=== PATIENT | female | born 1970 | race Caucasian/White ===

== ENCOUNTER 2016-04-23 10:00 | Emergency (ER) | payer OTHER ==
[~2016-04-23] VITALS: Ht 157.5 cm; Wt 135.2 kg
[2016-04-23 10:11] VITALS: BP 128/89; PULSE 99; RESP 17; TEMP 96.8; O2SAT 100
[2016-04-23] MEDS ORDERED: LIDOCAINE/PRILOCAINE 5 GM CREAM (EMLA) TP ONE (10:45)
[2016-04-23] MEDS ORDERED: ACETAMINOPHEN 500 MG TABLET PO ONE (10:45)
[2016-04-23] MEDS ORDERED: ceFAZolin SODIUM 1 GM VIAL IM ONE (10:45)
[2016-04-23] MEDS ORDERED: SULFAMETHOXAZOLE/TRIMETHOPR DS 1 TABLET PO ONE (10:45)
[2016-04-23] MEDS ORDERED: IBUPROFEN 800 MG TABLET PO ONE (10:45)
[2016-04-23 11:36] VITALS: BP 135/80; PULSE 87; RESP 17; TEMP 97
== END 2016-04-23 11:34 | disposition home or self-care (01) ==
LOC: SED 10:00
DX: L03.311 Cellulitis of abdominal wall (principal); Z91.02 Food additives allergy status
CPT/HCPCS: 82962; 96372; 99284; J0690

== ENCOUNTER 2016-04-25 12:18 | Emergency (ER) | payer OTHER ==
[~2016-04-25] VITALS: Ht 160 cm; Wt 135.2 kg
[2016-04-25 12:20] VITALS: BP 130/74; PULSE 99; RESP 15; TEMP 97.8; O2SAT 98
[2016-04-25 13:01] LABS: BASOPHILS # (AUTO) 0.1 K/uL (0.0-0.2); BASOPHILS % (AUTO) 0.8 % (0.0-2.0); EOSINOPHILS # (AUTO) 0.2 K/uL (0.0-0.4); EOSINOPHILS % (AUTO) 2.8 % (0.0-4.0); HEMATOCRIT 40.4 % (36-48); HEMOGLOBIN 13.6 g/dL (12.0-16.0); LYMPHOCYTES # (AUTO) 1.3 K/uL (1.0-5.5); LYMPHOCYTES % (AUTO) 17.2 % (20.5-51.5); MEAN CORPUSCULAR HEMOGLOBIN 29 pg (27-31); MEAN CORPUSCULAR HGB CONC 34 % (32-36); MEAN CORPUSCULAR VOLUME 87 fL (79.0-98.0); MONOCYTES # (AUTO) 0.4 K/uL (0.0-1.0); NEUTROPHILS # (AUTO) 5.4 K/uL (1.8-7.7); NEUTROPHILS % (AUTO) 73.2 % (40.0-70.0); PLATELET COUNT (AUTO) 258 K/uL (130-430); RED BLOOD CELL COUNT(AUTO) 4.63 MIL/uL (4.2-6.2); RED CELL DISTRIBUTION WIDTH 12.5 % (9.0-15.0); WHITE BLOOD COUNT (AUTO) 7.4 K/uL (4.8-10.8)
[2016-04-25 13:04] LABS: CALCIUM 8.8 mg/dL (8.4-11.0); CREATININE 0.58 mg/dL (0.55-1.30); POTASSIUM 3.7 mmol/L (3.5-5.1)
[2016-04-25 13:08] LABS: PROTHROMBIN TIME 10.5 SECS (9.5-12.5)
[2016-04-25 13:09] LABS: ALBUMIN 3.3 g/dL (3.4-4.8); TOTAL BILIRUBIN 0.5 mg/dL (0.0-1.0); TOTAL PROTEIN, SERUM 7.4 g/dL (6.4-8.3)
[2016-04-25] MEDS ORDERED: DIPH-TET-PERTUS Vaccine 0.5 ML VIAL (ADACEL) IM ONE (13:30)
[2016-04-25] MEDS ORDERED: BACITRACIN 1 GM OINT TP ONE (13:30)
[2016-04-25 13:45] VITALS: BP 131/77; PULSE 70; RESP 14; TEMP 98.6; O2SAT 96
== END 2016-04-25 13:45 | disposition home or self-care (01) ==
LOC: SED 12:18
DX: L03.311 Cellulitis of abdominal wall (principal); Z91.018 Allergy to other foods
CPT/HCPCS: 36415; 80053; 84703; 85025; 85610-TC; 85730-TC; 99284

== ENCOUNTER 2016-08-04 22:01 | Emergency (ER) | payer SELFPAY ==
[~2016-08-04] VITALS: Ht 157.5 cm; Wt 113.4 kg
[2016-08-04 22:09] VITALS: BP_SYST 152
[2016-08-04] MEDS ORDERED: NACL 0.9% 1,000 ML IV ONE (22:15)
[2016-08-04] MEDS ORDERED: fentaNYL CITRATE/PF 100 MCG/2 ML AMP IVP ONE (22:15)
[2016-08-04] MEDS ORDERED: LIDOCAINE 2%, 20 ML MDV INJ ONE (22:30)
[2016-08-04] MEDS ORDERED: SODIUM BICARBONATE 8.4% VIAL 50 MEQ/50 ML VIAL INJ ONE (22:30)
[2016-08-04] MEDS ORDERED: LIDOCAINE 4% TOPICAL 50 ML BOTTLE MM ONE (22:30)
[2016-08-04] MEDS ORDERED: BACITRACIN 1 GM OINT TP ONE ×2 (23:00→23:02)
[2016-08-04 23:11] VITALS: BP_SYST 135
== END 2016-08-04 23:11 | disposition home or self-care (01) ==
LOC: SED 22:01
DX: L03.032 Cellulitis of left toe (principal); L60.0 Ingrowing nail; I10 Essential (primary) hypertension; Z91.041 Radiographic dye allergy status; Z90.49 Acquired absence of other specified parts of digestive tract
CPT/HCPCS: 11750; 96361; 96374; 99284; J2001; J3010; J7030

== ENCOUNTER 2018-08-15 19:22 | Emergency (ER) | payer SELFPAY ==
[~2018-08-15] VITALS: Ht 160 cm; Wt 104.3 kg
[2018-08-15 19:31] VITALS: BP_SYST 150
--- NOTE | 2018-08-15 20:23 | NUR ---
Patient taken to lab for blood draw prior to bed placement.
--- NOTE | 2018-08-15 20:40 | NUR ---
Patient to ER bed 07 to gown for evaluation. Side rails up.
--- NOTE | 2018-08-15 20:52 | NUR ---
Patient brought in by self complaining of gradually worsening vaginal bleeding since July 12, 2018 with mild abdominal pain starting today. denies any nausea vomiting or diarrhea. Patient is afebrile. AAO x 4. Pain 2/10 cramping. No other complaints/injuries per patient or as noted. Will continue to monitor.
[2018-08-15 20:57] LABS: BASOPHILS # (AUTO) 0.1 K/uL (0.0-0.2); BASOPHILS % (AUTO) 1.5 % (0.0-2.0); EOSINOPHILS # (AUTO) 0.2 K/uL (0.0-0.4); EOSINOPHILS % (AUTO) 2.9 % (0.0-4.0); HEMATOCRIT 40.8 % (36-48); HEMOGLOBIN 13.8 g/dL (12.0-16.0); LYMPHOCYTES % (AUTO) 26.8 % (20.5-51.5); MEAN CORPUSCULAR HEMOGLOBIN 30 pg (27-31); MEAN CORPUSCULAR HGB CONC 34 % (32-36); MEAN CORPUSCULAR VOLUME 89 fL (79.0-98.0); MONOCYTES # (AUTO) 0.5 K/uL (0.0-1.0); MONOCYTES % (AUTO) 7.2 % (1.7-9.3); NEUTROPHILS # (AUTO) 4.6 K/uL (1.8-7.7); NEUTROPHILS % (AUTO) 61.6 % (40.0-70.0); PLATELET COUNT (AUTO) 189 K/uL (130-430); RED BLOOD CELL COUNT(AUTO) 4.61 MIL/uL (4.2-6.2); RED CELL DISTRIBUTION WIDTH 12.9 % (9.0-15.0); WHITE BLOOD COUNT (AUTO) 7.5 K/uL (4.8-10.8)
[2018-08-15 21:12] LABS: CALCIUM 9.3 mg/dL (8.4-11.0); CREATININE 0.62 mg/dL (0.55-1.30); POTASSIUM 3.8 mmol/L (3.5-5.1)
[2018-08-15 21:16] LABS: ALBUMIN 3.5 g/dL (3.4-4.8); TOTAL BILIRUBIN 0.5 mg/dL (0.0-1.0)
--- NOTE | 2018-08-15 21:46 | NUR ---
ER at bedside re examining patient.
[2018-08-15 21:57] VITALS: BP_SYST 150
--- NOTE | 2018-08-15 21:57 | NUR ---
Patient given written and verbal discharge instructions and verbalizes understanding. ER MD Geller discussed with patient the results and treatment provided. Patient in stable condition. ID arm band removed. Rx of Norethindrone acetate given. Patient educated on pain management and to follow up with PMD in 2-3 days. Pain Scale 0/10 Opportunity for questions provided and answered. Medication side effect fact sheet provided.
== END 2018-08-15 21:57 | disposition home or self-care (01) ==
LOC: SED 19:22
DX: N93.8 Other specified abnormal uterine and vaginal bleeding (principal); I10 Essential (primary) hypertension; Z91.041 Radiographic dye allergy status
CPT/HCPCS: 36415; 76830-TC; 76857; 80053; 85025; 99284